=== PATIENT | male | born 1965 | race Two or more races ===

== ENCOUNTER 2019-12-05 10:10 | Outpatient (CLI) | payer OTHER | END 2019-12-05 10:12 | disposition home or self-care (01) | LOC: RAD 10:10 | DX: M25.562 Pain in left knee (principal) ==

== ENCOUNTER 2020-01-20 08:32 | Outpatient (CLI) | payer OTHER | END 2020-01-20 09:09 | disposition home or self-care (01) | LOC: LAB 08:32 | DX: D64.89 Other specified anemias (principal); E88.89 Other specified metabolic disorders; D68.8 Other specified coagulation defects; N39.0 Urinary tract infection, site not specified; Z22.322 Carrier or suspected carrier of Methicillin resistant Staphylococcus aureus; Z76.89 Persons encountering health services in other specified circumstances; I49.8 Other specified cardiac arrhythmias; I10 Essential (primary) hypertension ==

== ENCOUNTER 2020-01-31 05:15 | Day surgery (SDC) | payer OTHER | END 2020-01-31 14:25 | disposition home or self-care (01) | LOC: CIR.AMB 05:15 | DX: M23.322 Other meniscus derangements, posterior horn of medial meniscus, left knee (principal); M22.42 Chondromalacia patellae, left knee; M12.262 Villonodular synovitis (pigmented), left knee ==